=== PATIENT | female | born 1990 | race Two or more races ===

== ENCOUNTER 2021-04-24 19:13 | Emergency (ER) | payer SELFPAY ==
[~2021-04-24] VITALS: Ht 157.5 cm; Wt 81.0 kg
[2021-04-24 20:15] LABS: BASOPHILS % 0.4 % (0.0-2.0); EOSINOPHILS % 1.1 % (0.0-5.0); HEMATOCRIT. 43.2 % (36.0-48.0); HEMOGLOBIN. 14.7 g/dL (12.0-16.0); LYMPHOCYTES % 51.1 % (20.0-50.0); MEAN CORPUSCULAR HEMOGLOBIN 30.8 pg (28.0-32.0); MEAN CORPUSCULAR VOLUME 90.7 fL (81.0-99.0); MEAN PLATELET VOLUME 8.3 fl (7.4-10.4); MONOCYTES % 4.5 % (2.0-8.0); NEUTROPHILS % 42.9 % (40.0-76.0); PLATELET 272 x1000/uL (130-400); RED BLOOD CELL COUNT 4.77 mill/uL (4.2-5.4); RED CELL DISTRIBUTION WIDTH 13.1 % (11.6-14.6)
[2021-04-24 20:20] LABS: CHLORIDE 109 mEq/L (98-107)
[2021-04-24 20:25] LABS: ETHANOL BLOOD < 10 mg/dL
[2021-04-24 20:27] LABS: HCG SCREEN NEGATIVE
[2021-04-24] MEDS ORDERED: LORAZEPAM 1MG TABLET PO ONE (20:30)
[2021-04-24] MEDS ORDERED: OLANZAPINE 5MG TABLET ODT PO ONE (20:30)
[2021-04-24 20:52] LABS: CLARITY URINE CLEAR (CLEAR); COLOR URINE YELLOW (YELLOW); KETONES URINE NEGATIVE (NEGATIVE); LEUKOCYTE ESTERASE URINE NEGATIVE (NEGATIVE); NITRITE URINE NEGATIVE (NEGATIVE); OCCULT BLOOD URINE NEGATIVE (NEGATIVE); PROTEIN URINE NEGATIVE (NEGATIVE); SPECIFIC GRAVITY URINE 1.009 (1.005-1.030); UROBILINOGEN URINE 0.2 E.U./dL (0.2-1.0)
[2021-04-24 21:02] LABS: *AMPHETAMINES SCREEN URINE NEGATIVE (NEGATIVE); *BARBITURATES SCREEN URINE NEGATIVE (NEGATIVE); *BENZODIAZEPINES SCREEN URINE NEGATIVE (NEGATIVE); *COCAINE SCREEN URINE NEGATIVE (NEGATIVE); METHADONE URINE SCREEN NEGATIVE (NEGATIVE); OPIATES URINE SCREEN NEGATIVE (NEGATIVE)
[2021-04-24 21:03] LABS: CANNABINOID URINE SCREEN NEGATIVE (NEGATIVE); PHENCYCLIDINE URINE SCREEN NEGATIVE (NEGATIVE)
[2021-04-25] MEDS ORDERED: KETOROLAC 60MG/2ML VIAL IM ONE (01:15)
[2021-04-25 13:52] VITALS: BP 94/58
== END 2021-04-25 13:57 | disposition home or self-care (01) ==
LOC: ER 19:13
DX: R45.851 Suicidal ideations (principal); F20.9 Schizophrenia, unspecified; Z88.0 Allergy status to penicillin; Z20.822 Contact with and (suspected) exposure to COVID-19
CPT/HCPCS: 36415; 80053; 80305; 80307; 80320; 80329; 81003; 81025; 84703; 85025; 93005; 96372; 99284; C9803; J1885; U0003; U0005; G0480

== ENCOUNTER 2023-05-04 22:26 | Emergency (ER) | payer SELFPAY ==
[~2023-05-04] VITALS: Ht 167.6 cm; Wt 77.1 kg
[2023-05-04 22:32] VITALS: O2SAT 100
[2023-05-04 23:01] LABS: BASOPHILS % 0.3 % (0.0-2.0); EOSINOPHILS % 1.6 % (0.0-5.0); HEMATOCRIT. 37.4 % (36.0-48.0); HEMOGLOBIN. 12.5 g/dL (12.0-16.0); LYMPHOCYTES % 42.9 % (20.0-50.0); MEAN CORPUSCULAR HEMOGLOBIN 29.9 pg (28.0-32.0); MEAN CORPUSCULAR HGB CONC 33.4 g/dL (31.0-37.0); MEAN CORPUSCULAR VOLUME 89.5 fL (81.0-99.0); MEAN PLATELET VOLUME 7.4 fl (7.4-10.4); NEUTROPHILS % 47.2 % (40.0-76.0); PLATELET 331 x1000/uL (130-400); RED BLOOD CELL COUNT 4.18 mill/uL (4.2-5.4); RED CELL DISTRIBUTION WIDTH 13.1 % (11.6-14.6); WHITE BLOOD COUNT 7.4 x1000/uL (4.5-11.0)
[2023-05-04 23:01] LABS: CLARITY URINE TURBID (CLEAR); COLOR URINE YELLOW (YELLOW); GLUCOSE URINE NEGATIVE (NEGATIVE); KETONES URINE NEGATIVE (NEGATIVE); LEUKOCYTE ESTERASE URINE 2+ (NEGATIVE); NITRITE URINE POSITIVE (NEGATIVE); OCCULT BLOOD URINE NEGATIVE (NEGATIVE); PH URINE 8.5 (4.5-8.0); PROTEIN URINE 2+ (NEGATIVE); SPECIFIC GRAVITY URINE 1.021 (1.005-1.030)
[2023-05-04 23:11] LABS: CHLORIDE 109 mEq/L (98-107); INDEX HEMOLYSI 1 (1-3); INDEX ICTERIC 1 (1-4); INDEX LIPEMIC 1 (1-3); POTASSIUM 3.7 mEq/L (3.5-5.1); SODIUM 141 mEq/L (136-145)
[2023-05-04 23:15] LABS: AMORPHOUS SEDIMENT URINE 1+ /lpf; BACTERIA URINE 2+; RBC URINE NONE SEEN /hpf (0-2); SQUAMOUS EPITHELIAL CELL URINE FEW /lpf (RARE/1+)
[2023-05-04 23:18] LABS: ALANINE AMINOTRANSFERASE 35 IU/L (13-61); ALBUMIN 3.4 g/dL (3.4-5.0); ASPARTATE AMINOTRANSFERASE 29 IU/L (15-37); BILIRUBIN TOTAL 0.3 mg/dL (0.1-1.0); CALCIUM 8.5 mg/dL (8.5-10.1); CARBON DIOXIDE 29 mEq/L (21-32); CREATININE 0.5 mg/dL (0.6-1.3); ETHANOL BLOOD < 10 mg/dL (<10); GLUCOSE 82 mg/dL (70-105); PROTEIN TOTAL 7.5 g/dL (6.0-8.3); UREA NITROGEN BLOOD 12 mg/dL (7-21)
[2023-05-04 23:28] LABS: *AMPHETAMINES SCREEN URINE NEGATIVE (NEGATIVE); *BARBITURATES SCREEN URINE NEGATIVE (NEGATIVE); *BENZODIAZEPINES SCREEN URINE NEGATIVE (NEGATIVE); *COCAINE SCREEN URINE NEGATIVE (NEGATIVE); CANNABINOID URINE SCREEN NEGATIVE (NEGATIVE); ECSTASY MDMA SCREEN URINE NEGATIVE (NEGATIVE); OPIATES URINE SCREEN NEGATIVE (NEGATIVE); PHENCYCLIDINE URINE SCREEN NEGATIVE (NEGATIVE)
[2023-05-05] MEDS ORDERED: HALOPERIDOL LACTATE 5MG/ML VIAL IM ONE (10:45)
[2023-05-05] MEDS: OLANZAPINE 5MG TABLET ODT PO SCH ×2 (12:46→12:47)
[2023-05-05] MEDS: LORAZEPAM 2MG/ML CPJ IM PRN ×2 (12:47→23:00)
[2023-05-05] MEDS ORDERED: CEPHALEXIN 250MG CAPSULE PO ONE (18:45)
[2023-05-05] MEDS: NITROFURANTOIN 100MG M/M CAPSULE PO SCH (19:00)
[2023-05-06] MEDS ORDERED: LORAZEPAM 2MG/ML CPJ IM ONE (08:30)
[2023-05-06] MEDS ORDERED: HALOPERIDOL LACTATE 5MG/ML VIAL IM ONE (08:30)
[2023-05-06] MEDS: NITROFURANTOIN 100MG M/M CAPSULE PO SCH ×2 (17:00→18:34)
[2023-05-06] MEDS: OLANZAPINE 5MG TABLET ODT PO SCH (17:00)
[2023-05-07] MEDS: LORAZEPAM 2MG/ML CPJ IM PRN (11:42)
[2023-05-07] MEDS: OLANZAPINE 5MG TABLET ODT PO SCH ×2 (11:42→20:24)
[2023-05-07] MEDS: NITROFURANTOIN 100MG M/M CAPSULE PO SCH ×2 (11:42→20:24)
[2023-05-07 19:47] VITALS: BP 126/82; PULSE 80; RESP 16; TEMP 98.2
[2023-05-08] MEDS: OLANZAPINE 5MG TABLET ODT PO SCH (09:00)
[2023-05-08] MEDS: NITROFURANTOIN 100MG M/M CAPSULE PO SCH (09:00)
[2023-05-08] MEDS ORDERED: CIPR250T4 MT (11:15)
[2023-05-08] MEDS ORDERED: OLAN5TAB6 MT (11:15)
== END 2023-05-08 11:31 | disposition home or self-care (01) ==
LOC: ER 22:26
DX: R45.851 Suicidal ideations (principal); N39.0 Urinary tract infection, site not specified; F20.9 Schizophrenia, unspecified; Z88.0 Allergy status to penicillin; Z20.822 Contact with and (suspected) exposure to COVID-19
CPT/HCPCS: 80053; 80305; 81003; 81025; 80320; 85025; 36415; 99285; 87426; 96372; C9803; J1630 ×2; J2060 ×3; G0480